=== PATIENT | female | born 1990 | race Caucasian/White ===

== ENCOUNTER 2023-11-27 10:23 | Emergency (ER) | payer OTHER ==
[~2023-11-27] VITALS: Ht 170.2 cm; Wt 68.0 kg
[2023-11-27] MEDS: OLANZAPINE 10 MG/VIAL IM ONE (10:30)
[2023-11-27] MEDS: LORAZEPAM 2MG/ML INJ IM ONE (10:42)
[2023-11-27 14:20] VITALS: O2SAT 99
[2023-11-27 14:20] LABS: BASOPHILS % 0.2 % (0.0-2.0); EOSINOPHILS % 1.3 % (0.0-5.0); HEMATOCRIT. 44.3 % (36.0-48.0); HEMOGLOBIN. 15.2 g/dL (12.0-16.0); LYMPHOCYTES % 22.8 % (20.0-50.0); MEAN CORPUSCULAR HEMOGLOBIN 31.6 pg (28.0-32.0); MEAN CORPUSCULAR HGB CONC 34.3 g/dL (31.0-37.0); MEAN CORPUSCULAR VOLUME 92.2 fL (81.0-99.0); MEAN PLATELET VOLUME 8.9 fl (7.4-10.4); MONOCYTES % 6.9 % (2.0-8.0); NEUTROPHILS % 68.8 % (40.0-76.0); PLATELET 297 x1000/uL (130-400); RED BLOOD CELL COUNT 4.81 mill/uL (4.2-5.4); RED CELL DISTRIBUTION WIDTH 14.2 % (11.6-14.6); WHITE BLOOD COUNT 9.6 x1000/uL (4.5-11.0)
[2023-11-27 14:21] LABS: HCG SCREEN NEGATIVE
[2023-11-27 14:42] LABS: CHLORIDE 111 mEq/L (98-107); POTASSIUM 3.5 mEq/L (3.5-5.1); SODIUM 146 mEq/L (136-145)
[2023-11-27 14:43] LABS: CARBON DIOXIDE 26 mEq/L (21-32)
[2023-11-27 14:44] LABS: CALCIUM 9.4 mg/dL (8.7-10.4)
[2023-11-27 14:48] LABS: CREATININE 0.7 mg/dL (0.6-1.0)
[2023-11-27 14:49] LABS: ETHANOL BLOOD 260 mg/dL (<10); GLUCOSE 69 mg/dL (70-105); UREA NITROGEN BLOOD 6 mg/dL (9-23)
[2023-11-27 14:50] LABS: ACETAMINOPHEN < 2 ug/mL (10-30); ALANINE AMINOTRANSFERASE 17 IU/L (10-49); ALBUMIN 4.6 g/dL (3.2-4.8); ASPARTATE AMINOTRANSFERASE 40 IU/L (<34)
[2023-11-27 14:51] LABS: BILIRUBIN TOTAL 0.5 mg/dL (0.1-1.0); PROTEIN TOTAL 7.6 g/dL (6.0-8.3)
[2023-11-27 15:02] LABS: CLARITY URINE CLEAR (CLEAR); COLOR URINE YELLOW (YELLOW); GLUCOSE URINE NEGATIVE (NEGATIVE); KETONES URINE NEGATIVE (NEGATIVE); LEUKOCYTE ESTERASE URINE NEGATIVE (NEGATIVE); NITRITE URINE NEGATIVE (NEGATIVE); OCCULT BLOOD URINE NEGATIVE (NEGATIVE); PH URINE 6.5 (4.5-8.0); PROTEIN URINE NEGATIVE (NEGATIVE); SPECIFIC GRAVITY URINE 1.018 (1.005-1.030)
[2023-11-27 15:36] LABS: *AMPHETAMINES SCREEN URINE NEGATIVE (NEGATIVE); *BARBITURATES SCREEN URINE NEGATIVE (NEGATIVE); *BENZODIAZEPINES SCREEN URINE NEGATIVE (NEGATIVE); *COCAINE SCREEN URINE NEGATIVE (NEGATIVE); METHADONE URINE SCREEN NEGATIVE (NEGATIVE)
[2023-11-27 15:37] LABS: CANNABINOID URINE SCREEN PRESUMPTIVE POSITIVE (NEGATIVE); ECSTASY MDMA SCREEN URINE NEGATIVE (NEGATIVE); OPIATES URINE SCREEN NEGATIVE (NEGATIVE); PHENCYCLIDINE URINE SCREEN NEGATIVE (NEGATIVE)
[2023-11-27] MEDS: SODIUM CHLORIDE 0.9% 1,000 ML IV ONE (18:06)
[2023-11-28] MEDS ORDERED: DIPHENHYDRAMINE 25MG CAPSULE PO ONE ×2 (00:15)
[2023-11-28] MEDS: DIPHENHYDRAMINE 25MG CAPSULE PO NR ×2 (01:08→01:09)
[2023-11-28] MEDS: NICOTINE 7MG PATCH TD ONE (16:28)
[2023-11-28] MEDS: HALOPERIDOL LACTATE 5MG/ML VIAL IM ONE (22:50)
[2023-11-29] MEDS: NICOTINE 21MG PATCH TD ONE (10:30)
[2023-11-30] MEDS ORDERED: SERTRALINE HCL 25MG TABLET PO SCH (09:00)
[2023-11-30 10:03] VITALS: BP 122/78; PULSE 79; RESP 14; TEMP 98.6
== END 2023-11-30 10:10 | disposition home or self-care (01) ==
LOC: ER 10:23
DX: R45.1 Restlessness and agitation (principal); R45.851 Suicidal ideations; Z20.822 Contact with and (suspected) exposure to COVID-19
CPT/HCPCS: 80053; 80305; 81003; 81025; 80307; 80320; 84703; 85025; 96360; 96372; 99291; 87426; J3490; J2060; J7030; Z7610 ×4; J1630; Q0163; G0480

== ENCOUNTER 2023-12-12 14:57 | Emergency (ER) | payer SELFPAY ==
[~2023-12-12] VITALS: Ht 167.6 cm; Wt 82.0 kg
[2023-12-12] MEDS: HALOPERIDOL LACTATE 5MG/ML VIAL IM STA (15:35)
[2023-12-12] MEDS: DIPHENHYDRAMINE 50MG/ML VIAL IM STA (15:35)
[2023-12-12] MEDS: MIDAZOLAM HCL 2 MG/2 ML VIAL IV ONE ×2 (15:35→21:58)
[2023-12-12 17:45] LABS: BASOPHILS % 0.2 % (0.0-2.0); EOSINOPHILS % 0.6 % (0.0-5.0); HEMATOCRIT. 40.3 % (36.0-48.0); HEMOGLOBIN. 13.4 g/dL (12.0-16.0); LYMPHOCYTES % 18.3 % (20.0-50.0); MEAN CORPUSCULAR HEMOGLOBIN 31.9 pg (28.0-32.0); MEAN CORPUSCULAR HGB CONC 33.2 g/dL (31.0-37.0); MEAN PLATELET VOLUME 8.4 fl (7.4-10.4); MONOCYTES % 7.2 % (2.0-8.0); NEUTROPHILS % 73.7 % (40.0-76.0); PLATELET 306 x1000/uL (130-400); RED CELL DISTRIBUTION WIDTH 15.1 % (11.6-14.6); WHITE BLOOD COUNT 9.6 x1000/uL (4.5-11.0)
[2023-12-12 17:53] LABS: CHLORIDE 113 mEq/L (98-107); POTASSIUM 3.8 mEq/L (3.5-5.1); SODIUM 144 mEq/L (136-145)
[2023-12-12 17:54] LABS: CARBON DIOXIDE 22 mEq/L (21-32)
[2023-12-12 17:55] LABS: CALCIUM 8.6 mg/dL (8.7-10.4)
[2023-12-12 17:58] LABS: HCG SCREEN NEGATIVE
[2023-12-12 17:59] LABS: CREATININE 0.6 mg/dL (0.6-1.0)
[2023-12-12 18:00] LABS: ETHANOL BLOOD 249 mg/dL (<10); GLUCOSE 78 mg/dL (70-105); TROPONIN I HIGH SENSITIVITY < 4 ng/L (3.0-34); UREA NITROGEN BLOOD 5 mg/dL (9-23)
[2023-12-12 18:01] LABS: ACETAMINOPHEN < 2 ug/mL (10-30); ALANINE AMINOTRANSFERASE 15 IU/L (10-49); ALBUMIN 3.9 g/dL (3.2-4.8); ASPARTATE AMINOTRANSFERASE 31 IU/L (<34)
[2023-12-12 18:02] LABS: BILIRUBIN TOTAL 0.3 mg/dL (0.1-1.0); PROTEIN TOTAL 6.7 g/dL (6.0-8.3)
[2023-12-12 18:09] LABS: THYROID STIMULATING HORMONE 0.61 uIU/mL (0.55-4.78)
[2023-12-12 21:58] VITALS: O2SAT 97
[2023-12-13 06:00] LABS: CLARITY URINE CLEAR (CLEAR); COLOR URINE DARK YELLOW (YELLOW); GLUCOSE URINE NEGATIVE (NEGATIVE); KETONES URINE TRACE (NEGATIVE); LEUKOCYTE ESTERASE URINE NEGATIVE (NEGATIVE); NITRITE URINE NEGATIVE (NEGATIVE); OCCULT BLOOD URINE NEGATIVE (NEGATIVE); PH URINE 5.5 (4.5-8.0); PROTEIN URINE NEGATIVE (NEGATIVE); SPECIFIC GRAVITY URINE 1.025 (1.005-1.030)
[2023-12-13 06:13] LABS: *AMPHETAMINES SCREEN URINE NEGATIVE (NEGATIVE); *BARBITURATES SCREEN URINE NEGATIVE (NEGATIVE); *BENZODIAZEPINES SCREEN URINE PRESUMPTIVE POSITIVE (NEGATIVE); *COCAINE SCREEN URINE NEGATIVE (NEGATIVE); CANNABINOID URINE SCREEN PRESUMPTIVE POSITIVE (NEGATIVE); ECSTASY MDMA SCREEN URINE NEGATIVE (NEGATIVE); METHADONE URINE SCREEN NEGATIVE (NEGATIVE); OPIATES URINE SCREEN NEGATIVE (NEGATIVE); PHENCYCLIDINE URINE SCREEN NEGATIVE (NEGATIVE)
[2023-12-13] MEDS: OLANZAPINE 5MG TABLET ODT PO SCH (16:34)
[2023-12-14 04:00] VITALS: BP 126/79; PULSE 61; RESP 12; TEMP 98.3
[2023-12-14] MEDS: NICOTINE 7MG PATCH TD ONE (10:02)
== END 2023-12-14 11:44 | disposition short-term general hospital (02) ==
LOC: ER 15:11
DX: R45.1 Restlessness and agitation (principal); Z20.822 Contact with and (suspected) exposure to COVID-19
CPT/HCPCS: 80053; 80305; 81003; 80307; 80329; 80320; 84703; 84443; 85025; 84484; 36415; 96372; 96374; 96376; 99285; 87426; J1200; J1630; J2250; Z7610; G0480